=== PATIENT | male | born 1995 | race Caucasian/White ===

== ENCOUNTER 2018-01-24 23:58 | Emergency (ER) | payer SELFPAY ==
[2018-01-25] MEDS ORDERED: SODIUM CL 0.9% 20 ML VIAL ONE
[2018-01-25] MEDS ORDERED: EPINEPHrine KIT (USE FOR EPIPEN) 1 MG/ML IM ONE
[2018-01-25] MEDS ORDERED: RANITIDINE 50 MG/2 ML VIAL ONE
[2018-01-25] MEDS ORDERED: methylPREDNISolone SOD SUCC 125 MG/2 ML VIAL ONE
[2018-01-25] MEDS ORDERED: RANITIDINE 50 MG/2 ML VIAL IVP ONE (00:05)
[2018-01-25] MEDS ORDERED: EPINEPHrine 1 MG/ML INJ IM ONE (00:06)
[2018-01-25] MEDS ORDERED: methylPREDNISolone SOD SUCC 125 MG/2 ML VIAL IVP ONE (00:06)
--- NOTE | 2018-01-25 01:04 | EDPHY ---
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 He has a EpiPen however he had left it in [place], he will be visiting their in 5 days time for the holiday, but of note is that he suspects out of date. At approximately 10:45 a.m. Today while sitting on the couch resting watching TV he started having a sense of something was wrong in his throat. It is very similar to that which he has had in the past when he would take his adrenaline. He denies any known exposure to anyone with a clinical illness of strep throat or URI. Subsequently he also felt that he had a change in his voice which has since normalized as he is taking Benadryl 50 mg p.o.. He does have a chronic baseline problem with asthma which only bothers him pretty much when he has a acute illness and has not been different or worse in the last day or 2 nor at this point in time. No new exposure to any of the following: Foods: The cannot think of anything new except for some herbal tea. Evidently the roommate had prepared some fish which perhaps he has been exposed to Medications: None. No antibiotics or RAND inhibitors or RAND blockers Detergents or soaps: Not applicable Prior, similar problem: Yes Prior allergy work up: Not without allergy desensitization per se Home treatment: Benadryl 50 mg p.o. Further, his girlfriend asked questions about weight loss and low proteins. Evidently was found to have a low-protein count in the past and has his sister had a gammaglobulin problem she was tested and he was found to be negative. Further, he has had a 20 lb weight loss in the last 4 months. Of note is that he does smoke marijuana. He finds that when he sits down to eat he gets early say she id and believes that is has a role in his weight loss. Per se he has never had any problems that would sound like cyclic vomiting. He has never had a workup for this med seen gastroenterology before. His heaviest adult weight has been 155 is now approximately 135. He further denies a history of bulimia or anorexia nervosa. REVIEW OF SYSTEMS: General: No difficulty with syncope or near syncope or palpitations or feeling faint HEENT: No swelling to the tongue, lips, hypopharynx, or throat. No change in her voice Respiratory: No cough, no dyspnea. No pain or difficulty swallowing Cardiovascular: No chest pain, no palpitations. Gastrointestinal: No vomiting, no abdominal pain. Musculoskeletal: No peripheral edema or swelling. A 10 system review of systems was performed and is negative except for the noted findings in the HPI. Source: Patient Exam Limitations: No limitations - Personal History Current Tetanus Diphtheria and Acellular Pertussis (TDAP): Yes - Medical/Surgical History Hx Asthma: Yes Hx Chronic Respiratory Disease: No Hx Diabetes: No Hx Cardiac Disease: No Hx Renal Disease: No Hx Cirrhosis: No Hx Alcoholism: No Hx HIV/AIDS: No Hx Splenectomy or Spleen Trauma: No - Family History Significant Family History: Other (Sister with Hypogammaglobulinemia.) - Social History Smoking Status: Never smoked Alcohol Use: None Drug Use: Marijuana - Physical Exam Exam: General Appearance: Alert, no distress. Afebrile. Normal phonation to my exam. No respiratory distress. He is not anxious Eyes: Pupils equal and round no pallor or injection. No icterus ENT, Mouth: Mucous membranes moist Pharynx without erythema or exudate, no swelling to the uvula. I am unable to see the epiglottis. TM Clear. He is nontender to the larynx. Neck: No adenopathy. Supple. No JVD. Trachea in midline. Respiratory: There are no retractions, lungs are clear to auscultation. Cardiovascular: Regular rate and rhythm, without murmur. Abdomen: Soft and nontender, no masses, bowel sounds normal. Neurological: Ox3. No motor weakness. Sensation intact. Gait nl. Skin: Warm and dry, no rashes. Musculoskeletal: No joint swelling. Extremities: No edema. Homans sign negative. No cords. Psychiatric: Normal affect. Patient is oriented X 3. There is no agitation Constitutional: Initial Vital Signs Temperature (C) 36.3 C 01/25/18 00:00 Heart Rate 55 L 01/25/18 00:00 Respiratory Rate 16 01/25/18 00:00 Blood Pressure 130/74 H 01/25/18 00:00 O2 Sat (%) 98 01/25/18 00:00 O2 Delivery Mode Room Air Allergies/Adverse Reactions: No Known Allergies Allergy (Unverified 01/25/18 00:07) Home Medications: Medication Instructions Recorded EPINEPHrine [Epipen 0.3 MG] 0.3 mg IM ONCE #2 syr 01/25/18 Ranitidine HCl [Zantac] 150 mg PO BID #4 tablet 01/25/18 predniSONE [Prednisone] 30 mg PO BID #12 tablet 01/25/18 Medical Decision Making ED Course/Re-evaluation: We discussed the prospect of getting medication observed for an hour. That made sense to him. He was given the following: Ranitidine 50 mg IV Methylprednisolone 125 mg IV Epinephrine 0.5 mg IM On rexamination in one hour, he showed no signs of progression over the next hour. In fact he felt a lot better, though I did not ever appreciate a change in his voice in the 1st place. He never did develop any rash or wheezing or hypotension. Going forward we discussed: - 48 hr management - 2nd wave phenomenon - stopping marijuana - GI follow-up Differential Diagnosis: Diagnostic considerations include, but are not limited to, the following, 5this represents a partial list of diagnoses considered These considerations are based on history, physical exam, past history, reassessment and diagnostic testing: Acute allergy, anaphylaxis, acute pharyngitis, strep pharyngitis, anxiety - Data Points Medications Given: Discontinued Medications Epinephrine HCl (Epinephrine) 0.5 mg IM EDNOW ONE Stop: 01/25/18 00:07 Last Admin: 01/25/18 00:08 Dose: 0.5 mg Methylprednisolone Sodium Succinate (Solu-Medrol) 125 mg IVP EDNOW ONE Stop: 01/25/18 00:07 Last Admin: 01/25/18 00:07 Dose: 125 mg Ranitidine HCl (Zantac) 50 mg IVP EDNOW ONE Stop: 01/25/18 00:06 Last Admin: 01/25/18 00:07 Dose: 50 mg Departure - Departure Disposition: Home, Routine, Self-Care Clinical Impression: Allergic reaction Qualifiers: Encounter type: initial encounter Qualified Code(s): T78.40XA - Allergy, unspecified, initial encounter Acute anaphylaxis Qualifiers: Encounter type: initial encounter Qualified Code(s): T78.2XXA - Anaphylactic shock, unspecified, initial encounter Condition: Good Instructions: Food Allergy (ED), Anaphylaxis (ED) Additional Instructions: Given her weight loss it is time to do the following: - Stop all marijuana - See a fleece tier in follow-up For the allergy: Benadryl 50 mg 4 times a day for 2 days Prednisone 30 mg twice daily for 2 days Zantac 150 mg twice daily for 2 days Time to refill for a new EpiPen. See prescription Referrals: Cade Mckeon MD [Medical Doctor] - As per Instructions Prescriptions: EPINEPHrine [Epipen 0.3 MG] 0.3 mg IM ONCE #2 syr predniSONE [Prednisone] 30 mg PO BID #12 tablet Ranitidine HCl [Zantac] 150 mg PO BID #4 tablet
[2018-01-25 01:58] VITALS: BP 129/64
== END 2018-01-25 01:58 | disposition home or self-care (01) ==
LOC: CED 23:58
DX: T78.40XA Allergy, unspecified, initial encounter (principal); T78.2XXA Anaphylactic shock, unspecified, initial encounter
CPT/HCPCS: 96374; J0171; J2780; J2930